=== PATIENT | female | born 1955 | race Caucasian/White ===

== ENCOUNTER → 2017-02-12 | Outpatient (CLI) | payer OTHER | LOC: FIMAGING 10:06 | PROVIDERS: ATTEND Internal Medicine | DX: R05 Cough (principal) ==

== ENCOUNTER → 2018-05-11 | Outpatient (CLI) | payer OTHER | LOC: FIMAGING 16:21 | PROVIDERS: ATTEND Internal Medicine | DX: R91.8 Other nonspecific abnormal finding of lung field (principal) ==

== ENCOUNTER 2018-08-30 15:22 | Emergency (ER) | payer OTHER ==
[2018-08-30] MEDS ORDERED: IBUPROFEN 600 MG TAB PO ONE (15:54)
--- NOTE | 2018-08-30 16:16 | EDPHY ---
HPI/HX/ROS/PE/MDM Narrative: CHIEF COMPLAINT: Mechanical fall HPI: This patient is a pleasant 63 year old female with past medical history including hypertension, hypothyroid. She presents with right knee pain following a mechanical fall about three hours ago. She was visiting her in the hospital and tripped over her shoe while trying to assist him in changing the recline settings on his bed. She fell sideways, twisting her right knee. Her discomfort is primarily over the lateral aspect of the knee. The patient also hit her right arm and the right side of her head, but she denies any pain in these areas and presents primarily for evaluation of the right knee. She denies any loss of consciousness. No headache, nausea, vomiting, or other associated symptoms. She denies any other recent trauma and has no further complaints. REVIEW OF SYSTEMS: Aside from elements discussed in the HPI, a comprehensive 10-point review of systems was reviewed and is negative. PMH: Chronic bronchitis, hypertension, left knee repair, chronic neck pain, depression, migraines, fibromyalgia, hypothyroid. SOCIAL HISTORY: . Lives in [place]. Employed. PHYSICAL EXAM: General:Patient is alert, in no acute distress. ENT:Eyes are normal to inspection. ENT inspection normal. Neck: Normal inspection. Full range of motion. Respiratory:No respiratory distress. Breath sounds normal bilaterally. Cardiovascular: Regular rate and rhythm. Strong peripheral pulses. Normal cap refill. Abdomen:The abdomen is nontender to palpation. There are no peritoneal signs. There are normal bowel sounds. Back: Normal to inspection. No tenderness to palpation. Skin: Normal color. No rash. Warm and dry. Extremities: Tenderness over lateral aspect of the right knee. No ecchymosis. No pain with axial loading. Otherwise normal appearance and full range of motion of extremities. Neuro: Oriented x3. Normal motor function. Normal sensory function. ED Course: 63 y/o female presents with right knee pain following a mechanical fall earlier today. Tenderness over the lateral aspect of the right knee on exam. No ecchymosis, no pain with axial loading. Plan for x-ray to rule out acute osseous abnormalities. Administered 600mg PO ibuprofen for pain relief. Reviewed x-ray of right knee. Negative for fracture. There is no clinical evidence of dirt or other foreign body. 16:54 Reassessed. Discussed imaging results. Plan to discharge home in good condition with knee immobilizer and referral to orthopedics. Return precautions discussed. She is comfortable with this plan. - Data Points Imaging Results: Imaging Impressions Knee X-Ray 08/30/18 15:50 Impression: Degenerative changes. Difficult to exclude localized road dirt. Imaging: I viewed and interpreted images myself Medications Given: Discontinued Medications Ibuprofen (Motrin) 600 mg PO EDNOW ONE Stop: 08/30/18 15:55 Last Admin: 08/30/18 15:56 Dose: 600 mg General Time Seen by Provider: 08/30/18 15:57 Initial Vital Signs: Initial Vital Signs Temperature (C) 37.2 C 08/30/18 15:35 Heart Rate 90 08/30/18 15:35 Respiratory Rate 18 08/30/18 15:35 Blood Pressure 130/97 H 08/30/18 15:35 O2 Sat (%) 96 08/30/18 15:35 O2 Delivery Mode Room Air Allergies/Adverse Reactions: No Allergies [NKDA] Allergy (Verified 08/30/18 15:41) Home Medications: Medication Instructions Recorded AMITRIPTYLINE HCL 50 mg PO HS 09/10/16 Albuterol Sulfate [PROVENTIL HFA] 2 puffs IH Q4HRS PRN 09/10/16 Bupropion HCl [Wellbutrin Xl] 300 mg PO DAILY 09/10/16 Famotidine [Pepcid 20 MG (*)] 20 mg PO BID 09/10/16 LORazepam [Ativan (*)] 0.5 mg PO BID PRN 09/10/16 Levothyroxine Sodium 88 mcg PO DAILY 09/10/16 Sertraline HCl [Zoloft 100mg (*)] 200 mg PO DAILY 09/10/16 Verapamil HCl [Verapamil ER] 180 mg PO DAILY 09/10/16 Departure - Departure Disposition: Home, Routine, Self-Care Clinical Impression: Strain of right knee Condition: Good Instructions: Knee Pain (ED), Knee Immobilizer (ED) Additional Instructions: Rest, ice, elevation. Take ibuprofen or Tylenol as directed as needed for pain. Follow up with an orthopedic surgeon within one week. You will likely need an MRI to further evaluate your injury. Use ibuprofen in addition to prescribed pain medication as directed for pain. Wear splint at all times until reevaluation, but okay to shower and sleep without splint. Return to the emergency department for worsening pain, swelling, numbness, weakness or other concerns. Referrals: Shana Rivero MD [Primary Care Provider] - As per Instructions Darinel Parekh MD [Medical Doctor] - As per Instructions Report Scribed for: Wilfred Markham Report Scribed by: Kathie Camacho Date of Report: 08/30/18 Time of Report: 16:56 Physician Review and Approval Statement: Portions of this note were transcribed by an ED scribe. I personally performed the history, physical exam, and medical decision making; and confirm the accuracy of the information in the transcribed note.
[2018-08-30 17:16] VITALS: BP 140/62
== END 2018-08-30 17:16 | disposition home or self-care (01) ==
DX: S83.91XA Sprain of unspecified site of right knee, initial encounter (principal); W19.XXXA Unspecified fall, initial encounter
CPT/HCPCS: L1830

== ENCOUNTER → 2019-02-23 | Outpatient (CLI) | payer OTHER | LOC: FIMAGING 13:57 | PROVIDERS: ATTEND Internal Medicine | DX: Z12.31 Encounter for screening mammogram for malignant neoplasm of breast (principal); Z80.3 Family history of malignant neoplasm of breast ==